=== PATIENT | female | born 1955 | race Caucasian/White ===

== ENCOUNTER 2018-05-27 20:08 | Emergency (ER) | payer OTHER, MEDICAID ==
[~2018-05-27] VITALS: Ht 149.9 cm; Wt 59.0 kg
[2018-05-27 20:17] VITALS: Ht 149.9 cm; Wt 59.0 kg
[2018-05-27 22:17] VITALS: BP 160/99
== END 2018-05-27 22:17 | disposition home or self-care (01) ==
LOC: ED 20:08
DX: K59.00 Constipation, unspecified (principal); R30.9 Painful micturition, unspecified; I10 Essential (primary) hypertension; Z90.49 Acquired absence of other specified parts of digestive tract; Z98.890 Other specified postprocedural states; Z90.710 Acquired absence of both cervix and uterus
CPT/HCPCS: Q0092